=== PATIENT | female | born 1995 | race Caucasian/White ===

== ENCOUNTER 2017-04-26 21:12 | Emergency (ER) | payer OTHER ==
[~2017-04-26] VITALS: Ht 167.6 cm; Wt 58.0 kg
[~2017-04-26 21:12] MED LIST: AMOX500T PO; ANTISOL30 AU; Z.0.BCPILL PO; ZOFR4TAB3 SL
[2017-04-26 21:16] VITALS: BP 118/74; PULSE 83; RESP 16; TEMP 98.7; O2SAT 99
[2017-04-26] MEDS ORDERED: ROBA500T PO (22:03)
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
[2017-04-26] MEDS ORDERED: TETANUS/DIPHTHERIA TOXOID ADULT 0.5 ML VIAL IM ONE (22:15)
== END 2017-04-26 22:42 | disposition home or self-care (01) ==
LOC: PHEFT 21:12
DX: S70.00XA Contusion of unspecified hip, initial encounter (principal); S50.812A Abrasion of left forearm, initial encounter; S50.811A Abrasion of right forearm, initial encounter; V49.49XA Driver injured in collision with other motor vehicles in traffic accident, initial encounter; Z23 Encounter for immunization
CPT/HCPCS: 90471; 90714